=== PATIENT | male | born 1980 | race Caucasian/White ===

== ENCOUNTER 2020-12-10 23:23 | Emergency (ER) | payer SELFPAY ==
--- NOTE | 2020-12-10 23:49 | NUR ---
PT STATES "IS ON THE STREETS RIGHT LEG IS BOTHERING HIM WAS TOLD HE HAD CELLULITIS 2 MONTHS AGO. STATES HE HASN'T BEEN DRINKING ENOUGH WATER. FINGER ON ON WAS BOTHERING HIM AND IS FATIGUED" CALL REMOTE IS WITHIN REACH, BED AT LOWEST HIEGHT, NO REQUEST AT THIS TIME.
[2020-12-11 00:13] VITALS: BP 139/80
[2020-12-11 00:25] LABS: BASOPHILS % (AUTO) 2 % (0-1); EOSINOPHILS % (AUTO) 2 % (1-7); LYMPHOCYTES % (AUTO) 31 % (22-44); MEAN CORPUSCULAR HEMOGLOBIN 31.4 pg (27.5-34.5); MEAN CORPUSCULAR HGB CONC 34.1 g/dL (33.2-36.2); MEAN PLATELET VOLUME 8.3 fL (7.4-10.4); MONOCYTES % (AUTO) 10 % (2-9); NEUTROPHILS % (AUTO) 56 % (42-75); PLATELET COUNT 240 x10^3/uL (130-400); RED BLOOD COUNT 4.46 x10^6/uL (4.38-5.82)
[2020-12-11 00:27] LABS: MD NO
[2020-12-11 00:38] LABS: ALBUMIN 3.2 g/dL (3.4-5.0); ANION GAP 6 mmol/L (5-15); CALCIUM 8.9 mg/dL (8.5-10.1); CHLORIDE 106 mmol/L (98-107)
[2020-12-11 00:43] LABS: CREATININE 1.01 mg/dL (0.7-1.3); TROPONIN I < 0.015 ng/mL (0.000-0.045)
--- NOTE | 2020-12-11 01:37 | NUR ---
TASK RN: DC EDUCATION PROVIDED, PT MOSTLY DISINTERESTED BUT DEMONSTRATES UNDERSTANDING. PT ASSISTED TO DRESS. TRANSFERED SELF TO OWN WHEELCHAIR. WHEELED TO DC WITH RN. PT REFUSED TAXI VOUCHER. DRESSED APPROPRIATELY FOR WEATHER
== END 2020-12-11 01:39 | disposition home or self-care (01) ==
LOC: ED 23:30
DX: L03.116 Cellulitis of left lower limb (principal); L03.115 Cellulitis of right lower limb; R60.0 Localized edema; R05 Cough; R00.0 Tachycardia, unspecified; Z92.0 Personal history of contraception
CPT/HCPCS: 36415; 80048; 80320; 82040; 83880; 84484; 85025; 93005; 99284; G0480